=== PATIENT | male | born 2000 | race American Indian/Alaskan Native ===

== ENCOUNTER 2021-06-05 19:34 | Emergency (ER) | payer SELFPAY ==
[2021-06-05 20:24] VITALS: BP 109/70
--- NOTE | 2021-06-05 20:32 | Emergency Department Report ---
ED Headache HPI - General Chief Complaint: Headache Stated Complaint: DOUBLE VISION HEADACHES Source: patient Exam Limitations: no limitations - History of Present Illness Initial Comments: Patient is a 20-year-old -[place] male with no past medical history presents to the ED with complaint of acute onset persistent left temporal headache for the last 2 days. Patient states that he has not taken any medications prior to arrival in the ED or since the onset of the symptoms. Patient states that prior to arrival in the ED for evaluation, the headache got worse and he started experiencing nausea and blurry vision. Patient denies neck pain, fever, chills, cough, chest pain, shortness of breath, dizziness, nasal and sinus congestion, sore throat, back pain, traumatic injury, fall, heavy li fting, vomiting and back pain. Timing/Duration: constant, waxing and waning, other (2 days) Quality: severe, constant, sharp Head Injury Location: frontal (left lateral frontal and retro-orbital) Recent Head Trauma: no recent headache/trauma, chronic headaches Modifying Factors: worse with: cold therapy, exposure to light, immobilization, medication, movement Associated Symptoms: denies symptoms, nausea/vomiting. denies: confusion, fatigue, facial pain, fever/chills, flushing, loss of consciousness, nasal congestion, nasal drainage, numbness in legs/feet, seizures, sinus infection, stiff neck, vision changes, weakness Allergies/Adverse Reactions: Allergies No Known Allergies Allergy (Unverified 06/05/21 20:21) Home Medications: Ambulatory Orders Acetaminophen [Tylenol] 500 mg PO Q6HR #30 tablet 06/05/21 Ibuprofen [Motrin] 600 mg PO Q8H PRN #30 tablet 06/05/21 Ondansetron [Zofran Odt] 4 mg PO Q6HR PRN #15 tab.rapdis 06/05/21 ED Review of Systems ROS: Stated complaint: DOUBLE VISION HEADACHES Other details as noted in HPI Constitutional: denies: chills, fever Eyes: denies: eye pain, eye discharge, vision change ENT: denies: ear pain, throat pain Respiratory: denies: cough, shortness of breath, wheezing Cardiovascular: denies: chest pain, palpitations Endocrine: no symptoms reported Gastrointestinal: nausea. denies: abdominal pain, diarrhea Genitourinary: denies: urgency, dysuria Musculoskeletal: denies: back pain, joint swelling, arthralgia Skin: denies: rash, lesions, change in color, change in hair/nails Neurological: headache. denies: weakness, paresthesias Psychiatric: denies: anxiety, depression, auditory hallucinations, visual hallucinations, suicidal thoughts Hematological/Lymphatic: as per HPI. denies: easy bleeding, easy bruising ED Past Medical Hx - Past Medical History Previous Medical History?: No - Surgical History Past Surgical History?: No - Medications Home Medications: Home Medications Medication Instructions Recorded Confirmed Last Taken Type Acetaminophen [Tylenol] 500 mg PO Q6HR #30 tablet 06/05/21 Unknown Rx Ibuprofen [Motrin] 600 mg PO Q8H PRN #30 tablet 06/05/21 Unknown Rx Ondansetron [Zofran Odt] 4 mg PO Q6HR PRN #15 tab.rapdis 06/05/21 Unknown Rx ED Physical Exam - General Limitations: No Limitations General appearance: alert, in no apparent distress - Head Head exam: Present: atraumatic, normocephalic, normal inspection - Eye Eye exam: Present: normal appearance, PERRL, EOMI Pupils: Present: normal accommodation - ENT ENT exam: Present: normal exam, normal orophraynx, mucous membranes moist, TM's normal bilaterally, normal external ear exam - Neck Neck exam: Present: normal inspection, full ROM. Absent: tenderness - Respiratory Respiratory exam: Present: normal lung sounds bilaterally. Absent: respiratory distress, wheezes, rales, rhonchi, chest wall tenderness, accessory muscle use, decreased breath sounds, prolonged expiratory - Cardiovascular Cardiovascular Exam: Present: regular rate, normal rhythm, normal heart sounds. Absent: systolic murmur, diastolic murmur, rubs, gallop - GI/Abdominal GI/Abdominal exam: Present: soft, normal bowel sounds. Absent: tenderness, guarding, rebound, hyperactive bowel sounds, hypoactive bowel sounds, organomegaly - Extremities Exam Extremities exam: Present: normal inspection, full ROM, normal capillary refill. Absent: tenderness, pedal edema, joint swelling, calf tenderness - Back Exam Back exam: Present: normal inspection, full ROM. Absent: tenderness, CVA tenderness (R), CVA tenderness (L), muscle spasm, paraspinal tenderness - Neurological Exam Neurological exam: Present: alert, oriented X3, CN II-XII intact, normal gait, reflexes normal - Psychiatric Psychiatric exam: Present: normal affect, normal mood - Skin Skin exam: Present: warm, dry, intact, normal color. Absent: rash ED Course Vital Signs 06/05/21 20:23 Temperature 98.1 F Pulse Rate 67 Respiratory 18 Rate Blood Pressure 109/70 O2 Sat by Pulse 100 Oximetry ED Medical Decision Making - Medical Decision Making This in the ED, patient is alert and oriented x3 and is not in any distress is a 20-year-old -[place] male with no past medical history presents to the ED with complaint of acute onset persistent left temporal headache for the last 2 days. Patient states that he has not taken any medications prior to arrival in the ED or since the onset of the symptoms. Patient states that prior to arrival in the ED for evaluation, the headache got worse and he started experiencing nausea and blurry vision.. Patient had appears to be in pain but he is hemodynamically stable. Patient was treated for pain in the ED and on reevaluation, patient's headache improved significantly. Patient will discharge home on medications and advised to follow-up with his primary care physician in 5 to 7 days for reevaluation or return to the ED immediately if symptoms get worse. - Differential Diagnosis tension headache, cludter headache; sinus headache Critical care attestation.: If time is entered above; I have spent that time in minutes in the direct care of this critically ill patient, excluding procedure time. ED Disposition Clinical Impression: Nausea and vomiting in adult Tension type headache Qualifiers: Headache chronicity pattern: acute headache Intractability: not intractable Qualified Code(s): G44.209 - Tension-type headache, unspecified, not intractable Disposition: 01 HOME / SELF CARE / HOMELESS Is pt being admited?: No Does the pt Need Aspirin: No Condition: Stable Instructions: Tension Headache, Adult, [id number] Additional Instructions: Take medication with food, drink plenty of fluids and follow-up with your primary care physician in 7 to 10 days for reevaluation. Return to the ED immediately if symptoms get worse. Prescriptions: Acetaminophen [Tylenol] 500 mg PO Q6HR #30 tablet Ibuprofen [Motrin] 600 mg PO Q8H PRN #30 tablet PRN Reason: Pain Ondansetron [Zofran Odt] 4 mg PO Q6HR PRN #15 tab.rapdis PRN Reason: Nausea Referrals: [facility] [Provider Group] - 7-10 days Forms: Work/School Release Form(ED) Time of Disposition: 20:36 Print Language: IRANIAN
[2021-06-05] MEDS ORDERED: IBUPROFEN 600 MG TAB PO ONE (20:50)
[2021-06-05] MEDS ORDERED: ACETAMINOPHEN 500 MG TAB PO ONE (20:50)
[2021-06-05] MEDS ORDERED: ONDANSETRON 4 MG ODT TAB PO ONE (20:51)
== END 2021-06-05 21:23 | disposition home or self-care (01) ==
LOC: ED 19:34
DX: G44.209 Tension-type headache, unspecified, not intractable (principal); R11.2 Nausea with vomiting, unspecified; Z79.899 Other long term (current) drug therapy
CPT/HCPCS: 99282; Q0162